=== PATIENT | female | born 1980 | race Caucasian/White ===

== ENCOUNTER → 2016-09-17 | Outpatient (CLI) | payer BC ==
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
== END ==
LOC: RAD 10:53
PROVIDERS: ATTEND Family Medicine
DX: S60.221A Contusion of right hand, initial encounter (principal); X58.XXXA Exposure to other specified factors, initial encounter; Y99.8 Other external cause status
CPT/HCPCS: 73130

== ENCOUNTER → 2016-11-13 | Outpatient (CLI) | payer BC ==
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
== END ==
LOC: RAD 16:23
PROVIDERS: ATTEND Otolaryngology Otolaryngology/Facial Plastic Surgery
DX: R51 Headache (principal)
CPT/HCPCS: 70486

== ENCOUNTER 2019-04-26 08:46 | Emergency (ER) | payer OTHER, BC ==
[~2019-04-26] VITALS: Ht 170 cm; Wt 73.0 kg
[2019-04-26] MEDS ORDERED: ONDANSETRON 4 MG (ZOFRAN) ORAL DISSOLVE TAB SL STA (09:34)
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
--- NOTE | 2019-04-26 11:10 | NUR ---
Cervical collar cleared by Dr. Terry @[id number].
[2019-04-26] MEDS ORDERED: IBUPROFEN 800 MG (MOTRIN) TAB PO STA (11:55)
[2019-04-26] MEDS ORDERED: HYDROcodone/APAP 5 MG/325 MG (LORTAB) TAB PO ONE (12:00)
[2019-04-26] MEDS ORDERED: NAPR-1071 PO (12:01)
[2019-04-26] MEDS ORDERED: CYCL10TA9 PO (12:01)
[2019-04-26 12:09] VITALS: BP 118/86
== END 2019-04-26 12:11 | disposition home or self-care (01) ==
LOC: EDUNIT# 08:46 → ER 08:48
DX: S06.0X0A Concussion without loss of consciousness, initial encounter (principal); S16.1XXA Strain of muscle, fascia and tendon at neck level, initial encounter; S29.012A Strain of muscle and tendon of back wall of thorax, initial encounter; F17.210 Nicotine dependence, cigarettes, uncomplicated; V49.40XA Driver injured in collision with unspecified motor vehicles in traffic accident, initial encounter
CPT/HCPCS: 70450; 72125

== ENCOUNTER 2019-07-31 14:32 | Outpatient (RCR) | payer OTHER, BC ==
[~2019-07-31 14:32] MED LIST: CYCL10TA9 PO; NAPR-1071 PO
== END 2019-08-05 | disposition home or self-care (01) ==
PROVIDERS: ATTEND Nurse Practitioner Family
DX: M54.12 Radiculopathy, cervical region (principal); M25.511 Pain in right shoulder; M25.512 Pain in left shoulder

== ENCOUNTER → 2019-09-24 | Outpatient (CLI) | payer BC, OTHER ==
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
== END ==
LOC: RAD 13:44
PROVIDERS: ATTEND Nurse Practitioner Family
DX: M47.22 Other spondylosis with radiculopathy, cervical region (principal); M48.02 Spinal stenosis, cervical region; M50.122 Cervical disc disorder at C5-C6 level with radiculopathy
CPT/HCPCS: 72141

== ENCOUNTER 2019-10-29 15:14 | Outpatient (RCR) | payer OTHER, BC | END 2019-10-29 16:05 | disposition home or self-care (01) | PROVIDERS: ATTEND Nurse Practitioner Family | DX: M54.12 Radiculopathy, cervical region (principal); M25.511 Pain in right shoulder; M25.512 Pain in left shoulder ==

== ENCOUNTER 2021-03-14 08:56 | Emergency (ER) | payer OTHER, BC ==
[~2021-03-14] VITALS: Ht 170 cm; Wt 81.0 kg
[~2021-03-14 08:56] MED LIST changes: +CYCL10TA25 PO; -CYCL10TA9 PO
[2021-03-14] MEDS ORDERED: CYCLOBENZAPRINE 10 MG (FLEXERIL) TAB PO STA (09:27)
[2021-03-14] MEDS ORDERED: NAPROXEN 250 MG (NAPROSYN) TABLET PO ONE (09:30)
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
[2021-03-14] MEDS ORDERED: CYCL10TA25 PO (10:13)
[2021-03-14] MEDS ORDERED: NAPR500T8 PO (10:13)
[2021-03-14 10:36] VITALS: BP 130/92
== END 2021-03-14 10:37 | disposition home or self-care (01) ==
LOC: EDUNIT# 08:56 → ER 08:59
DX: S30.1XXA Contusion of abdominal wall, initial encounter (principal); S20.212A Contusion of left front wall of thorax, initial encounter; V89.2XXA Person injured in unspecified motor-vehicle accident, traffic, initial encounter
CPT/HCPCS: 71046; 99283